=== PATIENT | female | born 1965 | race Caucasian/White ===

== ENCOUNTER 2019-09-04 20:08 | Emergency (ER) | payer OTHER, SELFPAY ==
[2019-09-04 20:11] VITALS: BP 129/81; PULSE 76; RESP 18; TEMP 36.3; O2SAT 98
--- NOTE | 2019-09-04 22:29 | ED_ITS ---
HPI - General Adult General Chief complaint: Eye Problems Stated complaint: eye did a weird thing, thought it was a stroke Time Seen by Provider: 09/04/19 21:28 Source: patient Mode of arrival: Ambulatory Limitations: no limitations History of Present Illness HPI narrative: 53-year-old female here for evaluation of symptoms that happened prior to arrival but has since resolved. She states that she was sitting in her car and the grocery store parking lot. She states that she noticed that her right eye head vision disturbances. It was somewhat difficult for her to describe. She states that it was not a blurry vision. She made it very adamant that it was not blurry but was very crisp. She did state that her symptoms were somewhat like it double vision. She stated that they went away when she covered her right eye. She did not check her vision by covering her left eye. She was consistent least saying that it was her right eye that she was having problems in. No other associated symptoms. She stated that she called nursing advice line who told her to come into the emergency department. The time my evaluation patient had no symptoms Related Data Allergies Allergy/AdvReac Type Severity Reaction Status Date / Time metronidazole [From Flagyl] Allergy Verified 09/04/19 20:15 Sulfa (Sulfonamide Allergy Verified 09/04/19 20:15 Antibiotics) Review of Systems Constitutional Constitutional: Denies fatigue, Denies fever(s) and Denies headache(s) Eyes Eyes: Denies blurry vision, Reports change in vision, Reports diplopia, Denies irritation, Denies itchy eyes, Denies loss of vision and Denies eye pain ENT Ears, Nose, Mouth, and Throat: Denies vertigo, Denies dizziness, Denies headache(s), Denies disequilibrium, Denies sinus pressure and Denies sore throat Cardiovascular Cardiovascular: Denies chest pain and Denies dyspnea Respiratory Respiratory: Denies dyspnea Gastrointestinal Gastrointestinal: Denies abdominal pain Genitourinary Genitourinary: Denies dysuria Musculoskeletal Musculoskeletal: Denies myalgias, Denies arthralgias and Denies tingling Integumentary/Breasts Skin/Breast: Denies lesions and Denies rash Neurologic Neurologic: Denies abnormal movements, Denies abnormal speech, Denies behavioral changes, Denies confusion, Denies vertigo, Denies dizziness, Denies headache(s), Denies loss of vision, Denies tingling, Denies paresthesias and Denies disequilibrium Psychiatric Psychiatric: Denies behavioral changes and Denies confusion Endocrine Endocrine: Denies fatigue Hematologic/Lymphatic Hematologic/Lymphatic: Denies easy bleeding and Denies easy bruising Allergic/Immunologic Allergic/Immunologic: Denies itchy eyes Patient History Medical History Patient denies medical problems (Acute) Social History Smoking Status: Never smoker Exam Initial Vital Signs Initial Vital Signs: Vital Signs Temperature 97.4 F L 09/04/19 20:11 Pulse Rate 76 09/04/19 20:11 Respiratory Rate 18 09/04/19 20:11 Blood Pressure 129/81 09/04/19 20:11 Pulse Oximetry 98 09/04/19 20:11 Const General: cooperative, comfortable and well developed Orientation: alert, awake and oriented x3 HENMT Head: normal to inspection and normocephalic Ears: TM's normal bilaterally Nose: external nose normal Face and sinus: normal facial exam Mouth: oral mucosae normal Eyes General: appearance normal, both eyes and all related structures Alignment and Position: alignment normal Eyelids: eyelids normal Conjunctivae: conjunctivae normal Sclera: sclerae normal Pupils: PERRL EOM: EOM intact bilaterally Resp Effort & Inspection: normal respiratory effort Auscultation: clear to auscultation bilaterally Cardio Rate: regular rate Rhythm: regular rhythm Skin Lesions: no lesions Rashes: no rashes Neuro General: alert, awake and oriented x3 Cranial Nerves: CN's II-XI intact bilaterally Cognition: normal cognition Speech: speech normal Motor: muscle tone normal throughout Extrem General: normal to inspection and capillary refill normal Psych Appearance: grossly normal and well kempt Mood: irritable mood Scores GCS Rocael coma scale eye opening: Spontaneous Rocael coma scale verbal response: Orientated [place] coma scale motor response: Obey commands Rocael coma scale total score: 15 NIH Stroke Scale Level of Conciousness: Alert, keenly responsive Ask month/age: Answers both questions correctly. Open/close eyes, close hand: Performs both tasks correctly Best gaze horizontal: Normal Visual benites: No visual loss Facial palsy: Normal symetrical movement Left arm drift: No drift for full 10 sec Right arm drift: No drift for full 10 sec Left leg drift: No drift for full 10 sec Right leg drift: No drift for full 10 sec Limb ataxia: Absent Sensory on face/arms/legs: Normal, no sensory loss Best language: No aphasia, normal Dysarthria: Normal Extinction or inattention: No abnormality Total NIH Stroke scale score: 0 Course Vital Signs Vital signs: Vital Signs - 8 hr 09/04/19 22:49 Temperature 98.3 F Pulse Rate 70 Respiratory Rate 16 Blood Pressure 127/75 Pulse Oximetry 98 Medical Decision Making MDM Narrative Medical decision making narrative: Patient asymptomatic upon arrival. NIH score 0. Patient had isolated right eye symptoms that was difficult for her to describe. The closest that she could say was that it was double vision of the right eye. Unsure how long the symptoms lasted. Does not seem to be associated with any other symptoms. Her history and physical exam is not consistent with a CVA. I have low suspicion for a TIA given her presenting symptoms. I do have some suspicion this could be a cranial nerve palsy causing a fatigue in the extraocular muscles causing a diplopia which has obviously resolved since she has no symptoms currently. I do not feel the need for head CT. I do not feel that blood work would be helpful in this situation. Patient does not warrant an MRI out of the emergency department. She has a primary provider. Patient became very defensive and I told her that I felt that this was most likely a palsy of 1 of the cranial nerves. She states ?I do not think it is that ?I did inform her that this was not a stroke given the resolution of her symptoms. I did inform her that I feel that a TIAs extremely unlikely however she could talk with her primary provider about further workup to include carotid Dopplers and echocardiogram and this could be done as outpatient. I do not feel that she needs admitted to the hospital. Patient again seemed to be upset about this discussion. She states that she talked with the nurse on the advice line who told her that I needed to ?rule out a TIA ?I told her that there is no specific blood test that ?rules out TIAs ?I state that it is a clinical diagnosis in the absence of a stroke with stroke-like symptoms and I informed her that I do not feel like this is what was going on with her. I do not feel that further workup is needed here in the emergency department. I offered her the phone number for Ophthalmology Department that she could follow up this week over she states she already has an eye doctor. I did inform her that it may be beneficial for her to call them tomorrow for a follow-up. We did discuss return precautions. Patient did leave somewhat upset about the encounter. Discharge Plan Departure Patient Disposition: Home Clinical Impression: Visual disturbance Discharge Date/Time: 09/04/19 22:35 Instructions: DI for Visual Field Disturbances Activity Restrictions/Additional Instructions: Recommend that tomorrow you contact your primary provider and also your insurance company about a follow-up with Ophthalmology. Your symptoms today are not consistent with a stroke. They are also not consistent with a TIA however further workup by your primary provider could potentially include a workup for this. Continue all your medications as directed. Return to the emergency department for any new or worsening symptoms
--- NOTE | 2019-09-04 22:47 | PC.NURSE ---
Pt reporting transient episode of diploplia from right eye which resolved [employer]. Reports ongoing sx of having dry eyes for months. Reports having tension headaches and occasional migraines but hasn't noticed any vision changes before.
[2019-09-04 22:49] VITALS: BP 127/75; PULSE 70; RESP 16; TEMP 36.8; O2SAT 98
== END 2019-09-04 22:35 | disposition home or self-care (01) ==
PROVIDERS: Emergency Provider Emergency Medicine
DX: H53.8 Other visual disturbances (principal)
CPT/HCPCS: 99281; 99282